=== PATIENT | male | born 1975 | race African-American/Black ===

== ENCOUNTER 2019-09-24 12:05 | Emergency (ER) | payer MEDICAID ==
[~2019-09-24] VITALS: Ht 180.3 cm; Wt 80.0 kg
[2019-09-24 14:18] LABS: BASOPHILS % 0.9 % (0.0-2.0); EOSINOPHILS % 5.2 % (0.0-5.0); HEMATOCRIT. 41.2 % (42.0-52.0); HEMOGLOBIN. 13.8 g/dL (14.0-18.0); LYMPHOCYTES % 37.4 % (20.0-50.0); MEAN CORPUSCULAR VOLUME 80.5 fL (80.0-94.0); MEAN PLATELET VOLUME 7.7 fl (7.4-10.4); MONOCYTES % 8.4 % (2.0-8.0); NEUTROPHILS % 48.1 % (40.0-76.0); PLATELET 284 x1000/uL (130-400); RED BLOOD CELL COUNT 5.12 mill/uL (4.7-6.1); RED CELL DISTRIBUTION WIDTH 15.1 % (11.6-14.6)
[2019-09-24 14:33] LABS: CHLORIDE 107 mEq/L (98-107)
[2019-09-24 14:39] LABS: ETHANOL BLOOD < 10 mg/dL
[2019-09-24 15:27] LABS: CLARITY URINE CLEAR (CLEAR); COLOR URINE YELLOW (YELLOW); KETONES URINE NEGATIVE (NEGATIVE); LEUKOCYTE ESTERASE URINE NEGATIVE (NEGATIVE); NITRITE URINE NEGATIVE (NEGATIVE); OCCULT BLOOD URINE NEGATIVE (NEGATIVE); PROTEIN URINE TRACE (NEGATIVE); SPECIFIC GRAVITY URINE 1.016 (1.005-1.030); UROBILINOGEN URINE 0.2 E.U./dL (0.2-1.0)
[2019-09-24 15:37] LABS: CANNABINOID URINE SCREEN PRESUMTIVE POSITIVE (NEGATIVE)
[2019-09-24 15:39] LABS: *AMPHETAMINES SCREEN URINE NEGATIVE (NEGATIVE); OPIATES URINE SCREEN NEGATIVE (NEGATIVE)
[2019-09-24 15:40] LABS: METHADONE URINE SCREEN NEGATIVE (NEGATIVE)
[2019-09-24 15:41] LABS: *BARBITURATES SCREEN URINE NEGATIVE (NEGATIVE)
[2019-09-24 15:42] LABS: *BENZODIAZEPINES SCREEN URINE NEGATIVE (NEGATIVE); PHENCYCLIDINE URINE SCREEN PRESUMTIVE POSITIVE (NEGATIVE)
[2019-09-24 15:45] LABS: *COCAINE SCREEN URINE PRESUMTIVE POSITIVE (NEGATIVE)
[2019-09-24] MEDS ORDERED: ACETAMINOPHEN 325MG TABLET PO ONE (17:00)
[2019-09-24 17:25] VITALS: BP 138/76
== END 2019-09-24 17:52 | disposition home or self-care (01) ==
LOC: ER 12:18 → EDBD 12:18 → ER 17:52
DX: F14.10 Cocaine abuse, uncomplicated (principal); F12.10 Cannabis abuse, uncomplicated; F16.10 Hallucinogen abuse, uncomplicated; R41.82 Altered mental status, unspecified; R53.83 Other fatigue
CPT/HCPCS: 36415; 70450; 71045; 80053; 80305; 80320; 81003; 82962; 85025; 93005; 99284; Z7610; G0480